=== PATIENT | female | born 1950 | race Caucasian/White ===

== ENCOUNTER → 2023-06-30 | Outpatient (CLI) | payer MEDICARE, BC | LOC: M WUC 09:26 | PROVIDERS: ATTEND Physician Assistant | DX: N20.0 Calculus of kidney (principal); K59.00 Constipation, unspecified; M51.36 Other intervertebral disc degeneration, lumbar region ==

== ENCOUNTER 2023-08-11 08:13 | Day surgery (SDC) | payer MEDICARE, BC ==
[~2023-08-11] VITALS: Ht 162.6 cm; Wt 97.6 kg
[2023-08-11] MEDS: NS 1,000 ML IV ONE (06:00)
[~2023-08-11 08:13] MED LIST: ACET650T15 PO; AZEL1SPR3; B-12100010 PO; BAYE81TA10 PO; BRIM1OPD OU; BRIM2OPD OU; FEXO-157 PO; HYDR-643 PO; LEVO175T2 PO; LOSA50TA28 PO; METF500T13 PO; NAPR500T6 PO; OCUVTAB4 PO; OMEG10002 PO; PRED1SUS2 OU; SALI0.6531 NARES; SIMV20TA22 PO; THERTAB52 PO; TIMO0.5S39 OU; TIZA10TA PO; VITA100017 PO
[2023-08-11 10:32] VITALS: TEMP 97.4
[2023-08-11 10:56] VITALS: BP 125/61; O2SAT 95
== END 2023-08-11 10:57 | disposition home or self-care (01) ==
LOC: M OPP 08:13
PROVIDERS: ATTEND Internal Medicine Gastroenterology
DX: Z86.010 Personal history of colon polyps (principal); Z83.719 Family history of colon polyps, unspecified; D12.6 Benign neoplasm of colon, unspecified; K64.8 Other hemorrhoids; K57.30 Diverticulosis of large intestine without perforation or abscess without bleeding; E11.9 Type 2 diabetes mellitus without complications; G47.30 Sleep apnea, unspecified; Z87.891 Personal history of nicotine dependence; Z79.02 Long term (current) use of antithrombotics/antiplatelets; Z79.1 Long term (current) use of non-steroidal anti-inflammatories (NSAID); Z79.82 Long term (current) use of aspirin; Z79.84 Long term (current) use of oral hypoglycemic drugs; Z99.89 Dependence on other enabling machines and devices; Z79.890 Hormone replacement therapy; Z79.899 Other long term (current) drug therapy; Z88.1 Allergy status to other antibiotic agents; Z88.6 Allergy status to analgesic agent

== ENCOUNTER → 2023-09-16 | Outpatient (CLI) | payer MEDICARE, BC | LOC: M SLEEP 20:00 | PROVIDERS: ATTEND Internal Medicine Pulmonary Disease | DX: G47.33 Obstructive sleep apnea (adult) (pediatric) (principal) ==

== ENCOUNTER → 2024-01-07 | Outpatient (CLI) | payer MEDICARE, BC ==
[~2024-01-07] MED LIST changes: -FEXO-157 PO; +FEXO-63 PO
== END ==
LOC: M WUC 13:10
PROVIDERS: ATTEND Physician Assistant
DX: Z87.442 Personal history of urinary calculi (principal)

== ENCOUNTER → 2024-08-11 | Outpatient (CLI) | payer MEDICARE, BC ==
[~2024-08-11] MED LIST changes: +E-Z-GAS II EFFERVESCENT PACKET (SODIUM BICARB./CITRIC ACID/SIMETHICONE) As Ordered ONE; +E-Z-HD 98% w/w 340GM SUSP BTL As Ordered ONE; +E-Z-PAQUE 96% w/w SUSP 176GM BTL As Ordered ONE; +NAPR-1405 PO; -NAPR500T6 PO
== END ==
LOC: M RAD 08:21
PROVIDERS: ATTEND Surgery
DX: R13.10 Dysphagia, unspecified (principal)

== ENCOUNTER → 2024-09-22 | Outpatient (CLI) | payer MEDICARE, BC ==
[~2024-09-22] MED LIST changes: -E-Z-GAS II EFFERVESCENT PACKET (SODIUM BICARB./CITRIC ACID/SIMETHICONE) As Ordered ONE; -E-Z-HD 98% w/w 340GM SUSP BTL As Ordered ONE; -E-Z-PAQUE 96% w/w SUSP 176GM BTL As Ordered ONE
== END ==
LOC: M RAD 13:15
PROVIDERS: ATTEND Internal Medicine
DX: M25.551 Pain in right hip (principal); M16.11 Unilateral primary osteoarthritis, right hip

== ENCOUNTER 2024-10-14 08:25 | Day surgery (SDC) | payer MEDICARE, BC ==
[~2024-10-14] VITALS: Ht 160 cm; Wt 96.1 kg
[~2024-10-14 08:25] MED LIST changes: +BRIM0.2S13; -BRIM1OPD OU; +BRIM5DRO25 OU; +BUSP5TA PO; +LIDOCAINE 2% 100MG/5ML SDV (FOR ANES.) As Ordered ONE; +propofoL 200 MG/20 ML VIAL As Ordered ONE
[2024-10-14 09:20] VITALS: TEMP 96.6
[2024-10-14] MEDS ORDERED: SUCRALFATE SUSP 1GM/10ML UD PO STA (09:26)
[2024-10-14] MEDS ORDERED: PANTOPRAZOLE 40MG VIAL IV STA (09:26)
[2024-10-14 10:00] VITALS: BP 156/71; O2SAT 96
== END 2024-10-14 10:10 | disposition home or self-care (01) ==
LOC: M OPP 08:25
PROVIDERS: ATTEND Surgery
DX: K22.70 Barrett's esophagus without dysplasia (principal); K22.89 Other specified disease of esophagus; K31.89 Other diseases of stomach and duodenum; K29.70 Gastritis, unspecified, without bleeding; R93.3 Abnormal findings on diagnostic imaging of other parts of digestive tract; G47.30 Sleep apnea, unspecified; Z88.1 Allergy status to other antibiotic agents; Z88.8 Allergy status to other drugs, medicaments and biological substances; Z79.82 Long term (current) use of aspirin; Z79.84 Long term (current) use of oral hypoglycemic drugs; Z79.899 Other long term (current) drug therapy

== ENCOUNTER → 2025-01-04 | Outpatient (CLI) | payer MEDICARE, BC ==
[~2025-01-04] MED LIST changes: +ACET-1515 PO; -ACET650T15 PO; -LIDOCAINE 2% 100MG/5ML SDV (FOR ANES.) As Ordered ONE; -TIMO0.5S39 OU; +TIMO5DRO9 OU; -propofoL 200 MG/20 ML VIAL As Ordered ONE
== END ==
LOC: M RAD 09:24
PROVIDERS: ATTEND Physician Assistant
DX: N20.0 Calculus of kidney (principal)

== ENCOUNTER → 2025-02-09 | Outpatient (CLI) | payer MEDICARE, BC | LOC: M PLAIMG 08:28 | PROVIDERS: ATTEND Neuromusculoskeletal Medicine, Sports Medicine | DX: M54.31 Sciatica, right side (principal) ==

== ENCOUNTER → 2025-02-24 | Outpatient (CLI) | payer MEDICARE, BC | LOC: M SOG 07:20 | PROVIDERS: ATTEND Neuromusculoskeletal Medicine, Sports Medicine | DX: M25.561 Pain in right knee (principal) ==